=== PATIENT | male | born 2000 | race African-American/Black ===

== ENCOUNTER 2020-02-02 21:56 | Emergency (ER) | payer OTHER ==
[~2020-02-02] VITALS: Ht 188 cm; Wt 99.3 kg
[2020-02-03 01:18] VITALS: BP 143/58
--- NOTE | 2020-02-03 08:04 | EKG ---
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
== END 2020-02-03 01:20 | disposition home or self-care (01) ==
LOC: ER 21:56
DX: R06.02 Shortness of breath (principal); Z03.818 Encounter for observation for suspected exposure to other biological agents ruled out

== ENCOUNTER 2020-02-03 20:30 | Emergency (ER) | payer OTHER ==
[~2020-02-03] VITALS: Ht 182.9 cm; Wt 99.8 kg
[2020-02-03 21:54] LABS: URINE BILIRUBIN NEGATIVE (Negative); URINE BLOOD NEGATIVE (Negative); URINE CLARITY CLEAR; URINE COLOR YELLOW; URINE GLUCOSE-RANDOM* NEGATIVE (Negative); URINE KETONES NEGATIVE (Negative); URINE LEUKOCYTES-REFLEX NEGATIVE (Negative); URINE NITRITE-REFLEX NEGATIVE (Negative); URINE PROTEIN (DIPSTICK) NEGATIVE (Negative); URINE SPECIFIC GRAVITY >= 1.030 (1.005-1.035)
[2020-02-03 22:46] VITALS: BP 128/92
--- NOTE | 2020-02-04 08:36 | EKG ---
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
== END 2020-02-03 22:47 | disposition home or self-care (01) ==
LOC: ER 20:30
PROVIDERS: Emergency Medicine
DX: R06.02 Shortness of breath (principal); R19.7 Diarrhea, unspecified; F41.1 Generalized anxiety disorder; R20.0 Anesthesia of skin

== ENCOUNTER 2020-02-07 13:07 | Emergency (ER) | payer OTHER ==
[~2020-02-07] VITALS: Ht 182.9 cm; Wt 99.8 kg
[2020-02-07 13:28] LABS: URINE BILIRUBIN NEGATIVE (Negative); URINE BLOOD NEGATIVE (Negative); URINE CLARITY CLEAR; URINE COLOR YELLOW; URINE GLUCOSE-RANDOM* NEGATIVE (Negative); URINE KETONES NEGATIVE (Negative); URINE LEUKOCYTES-REFLEX NEGATIVE (Negative); URINE NITRITE-REFLEX NEGATIVE (Negative); URINE PROTEIN (DIPSTICK) NEGATIVE (Negative); URINE UROBILINOGEN 0.2 E.U./dl (0.2-1.0)
[2020-02-07] MEDS ORDERED: NAPROSYN500 MG PO (13:54)
[2020-02-07 13:59] VITALS: BP 148/88
== END 2020-02-07 13:59 | disposition home or self-care (01) ==
LOC: ER 13:07
PROVIDERS: Physician Assistant
DX: N50.82 Scrotal pain (principal); N50.812 Left testicular pain; R30.0 Dysuria; R53.83 Other fatigue; F17.210 Nicotine dependence, cigarettes, uncomplicated